=== PATIENT | male | born 1990 | race Caucasian/White ===

== ENCOUNTER 2017-02-06 18:15 | Emergency (ER) | payer OTHER ==
[2017-02-06 18:26] VITALS: BP 143/75
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
== END 2017-02-06 19:27 | disposition home or self-care (01) ==
LOC: DL.ED 18:15
DX: S01.01XA Laceration without foreign body of scalp, initial encounter (principal); Z87.891 Personal history of nicotine dependence; W51.XXXA Accidental striking against or bumped into by another person, initial encounter; Y99.0 Civilian activity done for income or pay
CPT/HCPCS: 12001; 99283